=== PATIENT | female | born 1995 | race Caucasian/White ===

== ENCOUNTER 2021-05-08 00:43 | Observation (INO) | payer BC ==
[2021-05-08 03:20] LABS: BASO % 0.4 % (0-2.0); EOS % 2.5 % (0-4.5); HEMATOCRIT 41.2 % (32.4-45.2); HEMOGLOBIN 14.2 GM/dL (10.7-15.3); LYMPH % 43.1 % (8-40); MCH 30.6 pg (25.7-33.7); MCHC 34.4 g/dl (32.0-36.0); MEAN CELL VOLUME 88.9 fl (80-96); MEAN PLT VOLUME 7.7 fl (7.5-11.1); MONO % 10.4 % (3.8-10.2); NEUT % 43.6 % (42.8-82.8); PLATELET COUNT 274 10^3/uL (134-434); RBC 4.64 M/mm3 (3.60-5.2); RDW 13.8 % (11.6-15.6); WHITE BLOOD COUNT 5.3 K/mm3 (4.0-10.0)
[2021-05-08 03:33] LABS: CHLORIDE 105 mmol/L (98-107); SODIUM 141 mmol/L (136-145)
[2021-05-08 03:35] LABS: ANION GAP 11 MMOL/L (8-16); CALCIUM 8.4 mg/dL (8.5-10.1); CO2 25 mmol/L (21-32)
[2021-05-08 03:36] LABS: ALBUMIN 3.2 g/dl (3.4-5.0); BLOOD UREA NITROGEN 13.3 mg/dL (7-18)
[2021-05-08 03:39] LABS: CREATININE 0.8 mg/dL (0.55-1.3); GLUCOSE,RANDOM 100 mg/dL (74-106); SGOT/AST 60 U/L (15-37); SGPT/ALT 100 U/L (13-61)
[2021-05-08 03:40] LABS: BILIRUBIN,TOTAL 0.4 mg/dL (0.2-1); TOT PROT 7.3 g/dl (6.4-8.2)
[2021-05-08 03:41] LABS: ALK PHOS 99 U/L (45-117)
[2021-05-08 03:43] LABS: N-TERMINAL BNP 20.8 pg/ml (5-125)
[2021-05-08] MEDS ORDERED: IBUPROFEN 400 MG TABLET (FP) PO PRN (08:17)
[2021-05-08] MEDS: ENOXAPARIN NA (PORCINE) 40 MG/0.4 ML DISP.SYRIN SQ SCH (12:40)
[2021-05-08] MEDS ORDERED: diphenhydrAMINE HCL 12.5 MG/5 ML UNIT-DOSE CUPS PO ONE ×3 (13:13→21:15)
[2021-05-08 13:28] LABS: CHOLESTEROL 165 mg/dL (50-200)
[2021-05-08 13:29] LABS: TRIGLYCERIDES 329 mg/dL (0-150)
[2021-05-08 13:30] LABS: LDL CHOLESTEROL (ONLY SJRH) 90 mg/dL (5-100)
[2021-05-08 13:34] LABS: HDL CHOLESTEROL 38 mg/dL (40-60)
[2021-05-08 14:33] VITALS: BMI 46.5
[2021-05-08 22:35] LABS: COCAINE, UR NEGATIVE (NEGATIVE); METHADONE, UR NEGATIVE (NEGATIVE); OPIATES, URI NEGATIVE (NEGATIVE); URINE BENZODIAZEPINES NEGATIVE (NEGATIVE)
[2021-05-08 22:36] LABS: PHENCYCLIDINE,URINE NEGATIVE (NEGATIVE)
[2021-05-08 22:40] LABS: URINE AMPHETAMINES NEGATIVE (NEGATIVE); URINE BARBITURATES NEGATIVE (NEGATIVE)
[2021-05-09 07:32] LABS: BASO % 0.6 % (0-2.0); HEMATOCRIT 43.6 % (32.4-45.2); MCH 30.6 pg (25.7-33.7); MCHC 34.4 g/dl (32.0-36.0); MEAN PLT VOLUME 7.9 fl (7.5-11.1); MONO % 10.7 % (3.8-10.2); NEUT % 43.7 % (42.8-82.8); PLATELET COUNT 274 10^3/uL (134-434); RDW 13.6 % (11.6-15.6); WHITE BLOOD COUNT 5.8 K/mm3 (4.0-10.0)
[2021-05-09 07:43] LABS: CALCIUM 8.4 mg/dL (8.5-10.1)
[2021-05-09 07:44] LABS: ALBUMIN 3.2 g/dl (3.4-5.0); BLOOD UREA NITROGEN 11.8 mg/dL (7-18); MAGNESIUM 2.1 mg/dL (1.8-2.4)
[2021-05-09 07:47] LABS: CREATININE 0.7 mg/dL (0.55-1.3); PHOSPHOROUS 4.3 mg/dL (2.5-4.9)
[2021-05-09 07:49] LABS: BILIRUBIN,TOTAL 0.5 mg/dL (0.2-1); TOT PROT 7.3 g/dl (6.4-8.2)
[2021-05-09] MEDS ORDERED: PT OWN MED DRAWER 7, Y5N ONE (08:56)
[2021-05-09] MEDS ORDERED: methylPREDNISolone NA SUCC 40 MG/1 ML VIAL IVPUSH ONE (09:45)
[2021-05-09] MEDS: ENOXAPARIN NA (PORCINE) 40 MG/0.4 ML DISP.SYRIN SQ SCH (09:54)
[2021-05-10 06:13] VITALS: BP 120/54; PULSE 72; TEMP 98
[2021-05-10 07:39] LABS: BASO % 0.2 % (0-2.0); EOS % 0.3 % (0-4.5); HEMATOCRIT 39.4 % (32.4-45.2); HEMOGLOBIN 13.5 GM/dL (10.7-15.3); LYMPH % 30.7 % (8-40); MCH 30.5 pg (25.7-33.7); MCHC 34.1 g/dl (32.0-36.0); MEAN CELL VOLUME 89.4 fl (80-96); MEAN PLT VOLUME 8.1 fl (7.5-11.1); MONO % 8.5 % (3.8-10.2); NEUT % 60.3 % (42.8-82.8); PLATELET COUNT 274 10^3/uL (134-434); RBC 4.41 M/mm3 (3.60-5.2); RDW 13.6 % (11.6-15.6); WHITE BLOOD COUNT 7.5 K/mm3 (4.0-10.0)
[2021-05-10 07:58] LABS: ALBUMIN 2.9 g/dl (3.4-5.0)
[2021-05-10 07:59] LABS: BLOOD UREA NITROGEN 12.4 mg/dL (7-18); MAGNESIUM 1.8 mg/dL (1.8-2.4)
[2021-05-10 08:02] LABS: CREATININE 0.6 mg/dL (0.55-1.3); PHOSPHOROUS 3.2 mg/dL (2.5-4.9)
[2021-05-10 08:03] LABS: BILIRUBIN,TOTAL 0.3 mg/dL (0.2-1); TOT PROT 6.6 g/dl (6.4-8.2)
== END 2021-05-10 07:00 | disposition left against medical advice (07) ==
LOC: JER 00:43 → JERBED 06:40 → J4W 11:35
PROVIDERS: ADMIT Internal Medicine
PROC: 3E033GC Introduction of Other Therapeutic Substance into Peripheral Vein, Percutaneous Approach (ICD-10-PCS; principal; 2021-05-08)
PROC: 3E023GC Introduction of Other Therapeutic Substance into Muscle, Percutaneous Approach (ICD-10-PCS; 2021-05-08)
DX: R79.89 Other specified abnormal findings of blood chemistry (principal); R07.9 Chest pain, unspecified; R74.01 Elevation of levels of liver transaminase levels; F19.11 Other psychoactive substance abuse, in remission; F31.9 Bipolar disorder, unspecified; N91.2 Amenorrhea, unspecified; E66.01 Morbid (severe) obesity due to excess calories; Z68.42 Body mass index [BMI] 45.0-49.9, adult; Z91.030 Bee allergy status; F99 Mental disorder, not otherwise specified; R07.1 Chest pain on breathing; Z88.8 Allergy status to other drugs, medicaments and biological substances
CPT/HCPCS: 36415; 71046-TC-FY; 71275-TC; 76705-TC; 80053; 80061; 80307; 83735; 83880; 84100; 84443; 84484; 84703; 85025; 85379; 86706; 86708; 87340; 87517; 87902; 93005; 93010; 93306-TC; 93880-TC; 93970-TC; 96372; 96374; 96375; 99285-25; C9803; G0378; U0003; U0005